=== PATIENT | male | born 1940 | race Caucasian/White ===

== ENCOUNTER 2023-09-14 10:21 | Emergency (ER) | payer OTHER, MEDICARE ==
[2023-09-14 10:42] VITALS: TEMP 98.6; BMI 37.8
[2023-09-14 11:55] LABS: BASO % 0.8 % (0-2.0); EOS % 1.5 % (0-4.5); HEMOGLOBIN 11.1 GM/dL (11.7-16.9); LYMPH % 10.8 % (8-40); MCH 26.9 pg (25.7-33.7); MCHC 32.7 g/dl (32.0-35.9); MEAN CELL VOLUME 82.2 fl (80-96); MEAN PLT VOLUME 7.8 fl (7.5-11.1); MONO % 9.4 % (3.8-10.2); NEUT % 77.5 % (42.8-82.8); PLATELET COUNT 327 10^3/uL (134-434); RBC 4.13 M/mm3 (4.00-5.60); RDW 17.3 % (11.9-15.9); WHITE BLOOD COUNT 8.6 K/mm3 (4.0-10.0)
[2023-09-14 12:10] LABS: URINE APPEARANCE CLEAR; URINE BILIRUBIN NEGATIVE (NEGATIVE); URINE COLOR YELLOW; URINE GLUCOSE (UA) NEGATIVE (NEGATIVE); URINE KETONE NEGATIVE (NEGATIVE); URINE LEUK ESTERASE NEGATIVE (NEGATIVE); URINE NITRITE NEGATIVE (NEGATIVE); URINE PROTEIN NEGATIVE (NEGATIVE); URINE UROBILINOGEN 0.2 mg/dL (0.2-1.0)
[2023-09-14 12:28] LABS: POTASSIUM 3.9 mmol/L (3.5-5.1)
[2023-09-14 12:31] LABS: ALBUMIN 2.8 g/dl (3.4-5.0); BLOOD UREA NITROGEN 46.5 mg/dL (7-18); MAGNESIUM 2.2 mg/dL (1.8-2.4)
[2023-09-14 12:35] LABS: BILIRUBIN,TOTAL 0.8 mg/dL (0.2-1); PHOSPHOROUS 2.5 mg/dL (2.5-4.9)
[2023-09-14 14:01] VITALS: BP 117/71; PULSE 93; RESP 18
== END 2023-09-14 15:00 | disposition home or self-care (01) ==
LOC: JER 10:21
DX: R94.4 Abnormal results of kidney function studies (principal)
CPT/HCPCS: 36415; 76775-TC; 80053; 81003; 82570; 83735; 84100; 84300; 85025; 87086; 93005; 93010; 99285-25